=== PATIENT | male | born 1945 | race Caucasian/White ===

== ENCOUNTER 2017-04-27 08:07 | Inpatient (IN) | payer OTHER ==
[~2017-04-27] VITALS: Ht 172.7 cm; Wt 71.7 kg
[~2017-04-27 08:07] MED LIST: AMILODIPINE PO; ELIQUIS5 MG PO; FLECAINIDE ACET50 MG PO; PEPCID40 MG PO; TOPROL XL25 M1 PO; TRAMADOL HCL50 MG PO; ZOCOR80 MG PO
== END 2017-05-07 14:19 | disposition home or self-care (01) | DRG 331 ==
LOC: ER 08:07 → MEDI 13:58 → SEC-K 13:58 → MEDI 04-28 08:35 → SURH 05-07 12:00
PROVIDERS: Surgery
PROC: 30233N1 Transfusion of Nonautologous Red Blood Cells into Peripheral Vein, Percutaneous Approach (ICD-10-PCS; 2017-04-27)
PROC: 4A12X4Z Monitoring of Cardiac Electrical Activity, External Approach (ICD-10-PCS; 2017-04-28)
PROC: 07TC4ZZ Resection of Pelvis Lymphatic, Percutaneous Endoscopic Approach (ICD-10-PCS; 2017-05-02)
PROC: 0DJD8ZZ Inspection of Lower Intestinal Tract, Via Natural or Artificial Opening Endoscopic (ICD-10-PCS; 2017-05-02)
PROC: 0DTG4ZZ Resection of Left Large Intestine, Percutaneous Endoscopic Approach (ICD-10-PCS; principal; 2017-05-02 17:00)
DX: C18.6 Malignant neoplasm of descending colon (principal); D63.0 Anemia in neoplastic disease; I12.9 Hypertensive chronic kidney disease with stage 1 through stage 4 chronic kidney disease, or unspecified chronic kidney disease; N18.3 Chronic kidney disease, stage 3 (moderate); D50.0 Iron deficiency anemia secondary to blood loss (chronic); I48.0 Paroxysmal atrial fibrillation; Z79.01 Long term (current) use of anticoagulants; M10.09 Idiopathic gout, multiple sites

== ENCOUNTER 2018-07-03 08:34 | Day surgery (SDC) | payer OTHER | END 2018-07-03 13:10 | disposition home or self-care (01) | LOC: AMB-ENDOS 08:34 | DX: K62.4 Stenosis of anus and rectum (principal); K57.30 Diverticulosis of large intestine without perforation or abscess without bleeding; K64.8 Other hemorrhoids ==

== ENCOUNTER → 2019-11-01 06:00 | Outpatient (CLI) | payer OTHER | END | disposition home or self-care (01) | LOC: LAB 06:00 → ADM 11:45 → EDSTATUS 11-05 11:45 → AMB-ENDOS 11-05 11:45 | PROVIDERS: ATTEND Surgery | DX: C18.6 Malignant neoplasm of descending colon (principal); R59.0 Localized enlarged lymph nodes; R10.84 Generalized abdominal pain; R63.4 Abnormal weight loss; Z03.818 Encounter for observation for suspected exposure to other biological agents ruled out ==

== ENCOUNTER 2023-02-09 07:25 | Outpatient (CLI) | payer OTHER | END 2023-02-09 07:27 | disposition home or self-care (01) | LOC: NUCLEAR 07:25 | PROVIDERS: ATTEND Internal Medicine | DX: C18.9 Malignant neoplasm of colon, unspecified (principal) | CPT/HCPCS: 78815; A9552 ==